=== PATIENT | female | born 1940 | race Caucasian/White ===

== ENCOUNTER → 2017-11-02 | Outpatient (CLI) | payer OTHER ==
[~2017-11-02] MED LIST: COZAAR 25 MG TA25 M1 PO; EFFEXOR XR37.5 MG PO; EFFEXOR XR75 MG PO; SAVELLA12.5 MG PO; SIMVASTATIN20 MG PO; SYNTHROID50 MCG PO
--- NOTE | ~2017-11-02 | EKG ---
[address] [address] ELECTROCARDIOGRAM REPORT Name: LEYDA BOOTHE Room #: REG CL Trupti#: [id number] Admission: 11/02/17 Attend Phys: Tucker Clark MD Discharge: Date of : 44 Report #: [id number] THIS REPORT FOR: //name// [facility]ly [facility] Test Date: 2017-11-02 Test Time: 07:29:14 Pat Name: LEYDA BOOTHE Department: Room: Gender: F [employer]: MARCELO : 1940 Requested By: Tucker Clark Order Number: [id number] MD: Binu Mar Measurements Intervals [place] Rate: 88 P: 3 [place]: 155 QRS: 23 QRSD: 100 T: 50 QT: 364 QTc: 441 Interpretive Statements Sinus rhythm No significant abnormality No previous ECG available for comparison Electronically Signed On 11-02-2017 9:04:45 CDT by Binu Mar [email or web address] <ELECTRONICALLY SIGNED> By: Binu Mar MD, [facility] 11/02/17 0904 0729 0729 Binu Mar MD, FAC /EPI
== END | disposition home or self-care (01) ==
LOC: LITH 07:09
DX: N20.1 Calculus of ureter (principal); I10 Essential (primary) hypertension; E03.9 Hypothyroidism, unspecified; G47.33 Obstructive sleep apnea (adult) (pediatric); Z87.19 Personal history of other diseases of the digestive system; Z98.890 Other specified postprocedural states; Z79.899 Other long term (current) drug therapy; Z90.710 Acquired absence of both cervix and uterus